=== PATIENT | male | born 1950 | race Caucasian/White ===

== ENCOUNTER 2024-02-29 06:45 | Outpatient (RCR) | payer MEDICARE, SELFPAY | END 2024-02-29 23:59 | disposition home or self-care (01) | LOC: RPT 06:45 | PROVIDERS: ATTENDING PHYSICIAN Physician Assistant Surgical; FAMILY PHYSICIAN Family Medicine | DX: I69.398 Other sequelae of cerebral infarction (principal); I69.354 Hemiplegia and hemiparesis following cerebral infarction affecting left non-dominant side; Z73.6 Limitation of activities due to disability; I69.391 Dysphagia following cerebral infarction; R13.10 Dysphagia, unspecified; I69.312 Visuospatial deficit and spatial neglect following cerebral infarction; I69.392 Facial weakness following cerebral infarction; I69.328 Other speech and language deficits following cerebral infarction | CPT/HCPCS: 96125; 97010; 97110; 97112; 97129; 97130; 97163; 97167; 97530; 97535 ==

== ENCOUNTER 2024-03-30 10:08 | Outpatient (RCR) | payer MEDICARE, SELFPAY | END 2024-03-30 23:59 | disposition home or self-care (01) | LOC: RPT 10:08 | PROVIDERS: ATTENDING PHYSICIAN Physician Assistant Surgical; FAMILY PHYSICIAN Family Medicine | DX: I69.398 Other sequelae of cerebral infarction (principal); I69.354 Hemiplegia and hemiparesis following cerebral infarction affecting left non-dominant side; Z73.6 Limitation of activities due to disability | CPT/HCPCS: 97110; 97112; 97116; 97129; 97130; 97530; 97535 ==

== ENCOUNTER 2024-04-13 11:48 | Outpatient (RCR) | payer MEDICARE, SELFPAY | END 2024-04-13 23:59 | disposition home or self-care (01) | LOC: RPT 11:48 | PROVIDERS: ATTENDING PHYSICIAN Physician Assistant Surgical; FAMILY PHYSICIAN Family Medicine | DX: I69.398 Other sequelae of cerebral infarction (principal); I69.354 Hemiplegia and hemiparesis following cerebral infarction affecting left non-dominant side; Z73.6 Limitation of activities due to disability | CPT/HCPCS: 97110; 97112; 97129; 97130; 97530; 97535 ==

== ENCOUNTER → 2024-05-02 08:56 | Outpatient (REF) | payer MEDICARE, SELFPAY | LOC: RAD 08:56 | PROVIDERS: ATTENDING PHYSICIAN Family Medicine | DX: M79.604 Pain in right leg (principal); M79.605 Pain in left leg | CPT/HCPCS: 93925 ==

== ENCOUNTER → 2024-05-17 08:23 | Outpatient (REF) | payer MEDICARE, SELFPAY | LOC: DHCBC/DCA 08:23 | PROVIDERS: ATTENDING PHYSICIAN Internal Medicine Cardiovascular Disease; FAMILY PHYSICIAN Family Medicine | DX: I63.511 Cerebral infarction due to unspecified occlusion or stenosis of right middle cerebral artery (principal); I10 Essential (primary) hypertension; Z95.818 Presence of other cardiac implants and grafts; E78.2 Mixed hyperlipidemia; G47.33 Obstructive sleep apnea (adult) (pediatric); R79.89 Other specified abnormal findings of blood chemistry | CPT/HCPCS: 78452; 93017; A9500; J2785 ==

== ENCOUNTER → 2025-04-05 11:32 | Outpatient (REF) | payer MEDICARE, SELFPAY | LOC: RCS 11:32 | PROVIDERS: ATTENDING PHYSICIAN Pain Medicine Interventional Pain Medicine; FAMILY PHYSICIAN Family Medicine | DX: Z01.818 Encounter for other preprocedural examination (principal) | CPT/HCPCS: 93005 ==

== ENCOUNTER 2025-06-13 06:25 | Day surgery (SDC) | payer MEDICARE, SELFPAY | END 2025-06-13 09:10 | disposition home or self-care (01) | LOC: GI 06:25 | PROVIDERS: ATTENDING PHYSICIAN Internal Medicine Gastroenterology | DX: Z12.11 Encounter for screening for malignant neoplasm of colon (principal); K64.8 Other hemorrhoids; K57.30 Diverticulosis of large intestine without perforation or abscess without bleeding; D12.2 Benign neoplasm of ascending colon; Z86.0100 Personal history of colon polyps, unspecified | CPT/HCPCS: 45380; 88305 ==